=== PATIENT | female | born 2000 | race Caucasian/White ===

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

== ENCOUNTER 2021-09-18 23:58 | Emergency (ER) | payer OTHER ==
[~2021-09-18 23:58] MED LIST: BENTYL 20MG TAB20 MG PO; COLACE 100MG C100 MG PO; IBUPROFEN600 MG PO; KEFLEX CAP 500500 MG PO; LORTAB 5-325 M1 EACH PO; MACROBID 100 M100 MG PO; ONE DAILY WOME1 EAC1 PO; REGLAN10 MG PO
[2021-09-19 00:35] LABS: HEMOGLOBIN 14.5 gm/dl (12.3-15.3); RED BLOOD COUNT 4.72 M/UL (4.00-5.10); WHITE BLOOD COUNT 10.1 K/UL (4.5-11.0)
[2021-09-19 01:11] LABS: BUN/CREATININE RATIO 14 (0-10)
[2021-09-19] MEDS ORDERED: ZOFRAN 4 MG TAB4 MG PO (02:50)
[2021-09-19] MEDS ORDERED: OMNICEF 300 MG300 MG PO (02:50)
[2021-09-19] MEDS ORDERED: IBUPROFEN600 MG PO (02:50)
== END 2021-09-19 03:10 | disposition home or self-care (01) ==
LOC: ER1 23:58
PROVIDERS: Physician Assistant Medical
DX: N39.0 Urinary tract infection, site not specified (principal); K59.00 Constipation, unspecified; F17.210 Nicotine dependence, cigarettes, uncomplicated; Z87.442 Personal history of urinary calculi
CPT/HCPCS: 80053; 81001; 84703; 85025; 96374; 96375; 99284; J1885; J2405